=== PATIENT | male | born 1975 | race Caucasian/White ===

== ENCOUNTER → 2019-06-13 10:49 | Outpatient (BNVA) | payer OTHER, SELFPAY | PROVIDERS: Family Provider Nurse Practitioner Family; PCP Nurse Practitioner Family; Visit Provider Nurse Practitioner Family | DX: E11.9 Type 2 diabetes mellitus without complications (principal); I10 Essential (primary) hypertension | CPT/HCPCS: 80048; 83036 ==

== ENCOUNTER → 2019-06-18 16:06 | Outpatient (BNVA) | payer OTHER, SELFPAY | PROVIDERS: Family Provider Nurse Practitioner Family; PCP Nurse Practitioner Family; Visit Provider Nurse Practitioner | DX: A08.4 Viral intestinal infection, unspecified (principal) | CPT/HCPCS: 87804 ==

== ENCOUNTER → 2020-01-02 10:51 | Outpatient (BNVA) | payer OTHER, SELFPAY | PROVIDERS: Family Provider Nurse Practitioner Family; PCP Nurse Practitioner Family; Visit Provider Nurse Practitioner Family | DX: E11.9 Type 2 diabetes mellitus without complications (principal) | CPT/HCPCS: 82043 ==

== ENCOUNTER → 2020-02-06 08:17 | Outpatient (BNVA) | payer OTHER, SELFPAY | PROVIDERS: Family Provider Nurse Practitioner Family; PCP Nurse Practitioner Family; Visit Provider Nurse Practitioner Family | DX: E11.9 Type 2 diabetes mellitus without complications (principal) | CPT/HCPCS: 82043 ==

== ENCOUNTER → 2020-04-02 08:37 | Outpatient (BNVA) | payer OTHER, SELFPAY | PROVIDERS: Family Provider Nurse Practitioner Family; PCP Nurse Practitioner Family; Visit Provider Nurse Practitioner Family | DX: I10 Essential (primary) hypertension (principal); E11.9 Type 2 diabetes mellitus without complications | CPT/HCPCS: 80048; 83036 ==

== ENCOUNTER → 2020-07-02 08:43 | Outpatient (BNVA) | payer OTHER, SELFPAY | PROVIDERS: PCP Nurse Practitioner Family; Visit Provider Nurse Practitioner Family | DX: E11.9 Type 2 diabetes mellitus without complications (principal); I10 Essential (primary) hypertension | CPT/HCPCS: 80053; 83036 ==

== ENCOUNTER → 2020-09-24 08:18 | Outpatient (BNVA) | payer OTHER, SELFPAY | PROVIDERS: PCP Nurse Practitioner Family; Visit Provider Nurse Practitioner Family | DX: E11.9 Type 2 diabetes mellitus without complications (principal); E78.5 Hyperlipidemia, unspecified | CPT/HCPCS: 80061; 83036 ==

== ENCOUNTER → 2020-11-24 15:55 | Outpatient (BNVA) | payer OTHER, SELFPAY | PROVIDERS: PCP Nurse Practitioner Family; Visit Provider Nurse Practitioner Family | DX: I10 Essential (primary) hypertension (principal); R07.89 Other chest pain | CPT/HCPCS: 80053; 81003; 82150; 83690; 83735; 84443; 85025; 85651; 86140 ==

== ENCOUNTER 2020-11-26 15:42 | Emergency (ER) | payer OTHER, SELFPAY ==
[2020-11-26 15:53] VITALS: BP 109/65; PULSE 87; RESP 18; TEMP 36.8; O2SAT 95; BMI 21.9
[2020-11-26 19:50] LABS: Basophils % 0.5 %; Eosinophils # 0.1 10^3/uL (0.0-0.8); Eosinophils % 1.3 %; Hematocrit 51.3 % (42.0-52.0); Hemoglobin 16.5 g/dL (11.7-16.6); Lymphocytes # 2.6 10^3/uL (0.8-4.8); Mean Corpuscular HGB Conc 32.2 g/dL (30.0-36.0); Mean Corpuscular Hemoglobin 29.9 pg (28.0-34.0); Mean Corpuscular Volume 92.9 fL (80-94); Mean Platelet Volume 9.1 fL (7.4-10.4); Monocytes # 0.6 10^3/uL (0.2-0.9); Monocytes % 7.1 %; Neutrophils % 58.8 %; Nucleated Red Blood Cells % 0 %; Platelet Count 324 10^3/cmm (130-400); Red Blood Count 5.52 10^6/uL (4.1-5.3); Red Cell Distribution Width 12.7 % (12.1-15.1)
[2020-11-26 20:12] LABS: Alanine Aminotransferase 19 U/L (0-41); Albumin Level 4.4 g/dL (3.5-5.2); Alkaline Phosphatase 87 IU/L (40-130); Anion Gap 12.1 (5-19); Aspartate Amino Transferase 16 U/L (0-40); Blood Urea Nitrogen 16 mg/dL (6-20); Carbon Dioxide 28 mmol/L (22-29); Chloride 102 mmol/L (98-107); Globulin 2.5 g/dL (1.3-4.6); Glomerular Filtration Rate 120.9 mL/min (90-130); Glucose 117 mg/dL (65-115); Osmolality Calculated 288 mOsm/kg (285-295); Potassium 4.1 mmol/L (3.5-5.1); Sodium 138 mmol/L (136-145); Total Bilirubin 0.2 mg/dL (0.15-1.2); Total Protein 6.9 g/dL (6.6-8.7)
--- NOTE | 2020-11-26 20:15 | CTR_ITS ---
PROCEDURE INFORMATION: Exam: CT Abdomen And Pelvis With Contrast Exam date and time: 11/26/2020 8:15 PM Age: 45 years old Clinical indication: Abdominal pain; Flank; Left; Additional info: Abd pain TECHNIQUE: Imaging protocol: Computed tomography of the abdomen and pelvis with contrast. Radiation optimization: All CT scans at this facility use at least one of these dose optimization techniques: automated exposure control; mA and/or kV adjustment per patient size (includes targeted exams where dose is matched to clinical indication); or iterative reconstruction. Contrast material: OMNI 300; Contrast volume: 95 ml; Contrast route: INTRAVENOUS (IV); COMPARISON: US soft tissue/extremity [id number] 06/21/2020 3:44 PM RADIATION DOSE METRICS: Total DLP (mGy-cm): 1070.17 FINDINGS: Liver: There is focal hypoattenuation adjacent to the falciform fissure compatible with focal fatty infiltration. Gallbladder and bile ducts: Normal. No calcified stones. No ductal dilation. Pancreas: Normal. No ductal dilation. Spleen: An isodense 1.5 cm nodularity seen anterior to the spleen compatible with a benign splenule. Adrenal glands: Normal. No mass. Kidneys and ureters: There is a 3.3 mm nonobstructing calculus seen in the upper pole of the left kidney. Stomach and bowel: Moderate stool is present within the colon. There are several loops of nondilated fluid-filled small bowel seen in the lower abdomen and pelvis, findings could represent mild ileus. Appendix: The appendix is visualized and is normal in configuration. Intraperitoneal space: Unremarkable. No free air. No significant fluid collection. Vasculature: Unremarkable. No abdominal aortic aneurysm. Lymph nodes: Unremarkable. No enlarged lymph nodes. Urinary bladder: Unremarkable as visualized. Reproductive: Unremarkable as visualized. Bones/joints: Unremarkable. No acute fracture. Soft tissues: Unremarkable. CT/CT abdomen pelvis w con* [id number] IMPRESSION: 1. Nonobstructing 3.3 mm left renal calculus. 2. Moderate stool present within the colon. 3. Several nondilated fluid-filled small bowel loops are seen in the lower abdomen and pelvis, findings that could represent mild ileus. Radiation Dose CTDIVOL = (mGy): DLP = 1070.17 (mGy-cm)
--- NOTE | 2020-11-26 20:25 | ED_ITS ---
HPI - Abdominal Pain General: Chief Complaint: Abdominal Pain Stated Complaint: L ABD PAIN, L FLANK PAIN(HAS U/S SCHED,CAN'T WAIT) Time Seen by Provider: 11/26/20 20:05 Source: patient Mode of arrival: ambulatory Limitations: no limitations History of Present Illness: HPI narrative: 45-year-old male states has been having left-sided abdominal and flank pain since Sunday. He states pain is sharp in nature and rates it a 7 out of 10. Denies any dysuria. Denies any worsening or improving factors. He denies any vomiting or diarrhea. He states that his pain is been pretty constant. Associated Symptoms: Denies chills, dysuria and fever(s) Review of Systems Const: Denies: fever(s), chills, body aches or change in appetite Eyes: Denies: blurry vision or eye discomfort ENMT: Denies: throat pain or dental pain Card: Denies: chest pain Resp: Denies: dyspnea GI: Reports: abdominal pain : Denies: dysuria Musc: Denies: neck pain or back pain Skin/Breast: Denies: rash Neuro: Denies: headache(s) Psych: Denies: depression Aric/Lymph: Denies: easy bruising All/Imm: Denies: urticaria PFSH ED PFSH: Medical History (Updated 11/26/20 @ 22:13 by Rupa Santana MD) Abdominal pain Colitis Hypertension Left-sided chest wall pain Mild acid reflux Type 2 diabetes mellitus without complication Family History Mother Hypertension Diabetes Father Diabetes Social History Smoking and tobacco status: never smoked Physical Exam Const: COMMON NORMALS: no acute distress, patient oriented x3 and healthy appearing HENMT: COMMON NORMALS: normocephalic and atraumatic HEAD & SCALP: normocephalic and atraumatic Eye: COMMON NORMALS: Equal, round and reactive pupils present and EOMs intact bilaterally PUPIL: Yes Equal, round and reactive pupils present Neck/C-Spine: COMMON NORMALS: full ROM and supple Chest: COMMONS NORMALS: normal inspection of the chest and normal palpation of entire chest wall Resp: COMMON NORMALS: normal respiratory effort, No retractions, No use of accessory muscles and clear to auscultation bilaterally AUSCULTATION: clear to auscultation bilaterally Cardio: COMMON NORMALS: regular rate, regular rhythm and No murmurs present (Cardio) RATE: regular rate RHYTHM: regular rhythm GI: COMMON NORMALS: Normal to inspection, nondistended, normoactive bowel sounds present, Soft to palpation, non-tender and no masses PALPATION: Yes Soft to palpation and Yes Tenderness to palpation present (GI) Details: LLQ Extremity: COMMON NORMALS: normal to inspection and full ROM Neuro: COMMON NORMALS: patient oriented x3, moves all extremities and no focal motor deficits Psych: COMMON NORMALS: mental status grossly normal, Normal thought process present and cooperative THOUGHT PROCESS: Normal thought process present Skin: COMMON NORMALS: no rashes or lesions noted and no wounds GENERAL SKIN EXAM: no rashes or lesions noted Course Vital Signs: Vital signs: Vital Signs Temperature 98.2 F 11/26/20 15:53 Pulse Rate 87 11/26/20 15:53 Respiratory Rate 18 11/26/20 15:53 Blood Pressure 109/65 11/26/20 15:53 Pulse Oximetry 95 11/26/20 15:53 MDM - Abdominal Pain MDM Narrative: Medical decision making narrative: Patient presents here with flank pain and does have a kidney stone. Is likely causing his pain. Should be able to pass the stone his pain is resolved here. We will send him home with a strainer along with pain meds. He is to follow-up with urology and return if worsening. Lab Data: Labs: Lab Results 11/26/20 11/26/20 11/26/20 Range/Units 19:46 19:46 19:46 WBC 8.0 (4.0-10.0) 10^3/ uL RBC 5.52 H (4.1-5.3) 10^6/u L Hgb 16.5 (11.7-16.6) g/dL Hct 51.3 (42.0-52.0) % MCV 92.9 (80-94) fL MCH 29.9 (28.0-34.0) pg MCHC 32.2 (30.0-36.0) g/dL RDW 12.7 (12.1-15.1) % Plt Count 324 (130-400) 10^3/c mm MPV 9.1 (7.4-10.4) fL Neut % (Auto) 58.8 % Lymph % (Auto) 32.0 % [place] % (Auto) 7.1 % Eos % (Auto) 1.3 % Baso % (Auto) 0.5 % Neut # (Auto) 4.70 (1.8-7.7) 10^3/u L Lymph # (Auto) 2.6 (0.8-4.8) 10^3/u L [place] # (Auto) 0.6 (0.2-0.9) 10^3/u L Eos # (Auto) 0.1 (0.0-0.8) 10^3/u L Baso # (Auto) 0.0 (0.0-0.1) 10^3/u L Nucleated RBC % (a uto) 0 % Nucleated RBCs # 0.0 /100WBC Sodium 138 (136-145) mmol/L Potassium 4.1 (3.5-5.1) mmol/L Chloride 102 (98-107) mmol/L Carbon Dioxide 28 (22-29) mmol/L Anion Gap 12.1 (5-19) BUN 16 (6-20) mg/dL Creatinine 0.7 (0.7-1.2) mg/dL GFR Calculation 120.9 (90-130) mL/min Glucose 117 H (65-115) mg/dL Calculated Osmolal ity 288 (285-295) mOsm/k g Calcium 9.0 (8.5-10.5) mg/dL Total Bilirubin 0.2 (0.15-1.2) mg/dL AST 16 (0-40) U/L ALT 19 (0-41) U/L Alkaline Phosphata se 87 (40-130) IU/L Total Protein 6.9 (6.6-8.7) g/dL Albumin 4.4 (3.5-5.2) g/dL Globulin 2.5 (1.3-4.6) g/dL Lipase 35 (13-60) U/L Imaging Data ^: CT Abd/Pel: Attestation: I personally reviewed and interpreted this imaging study as follows: Radiologist's impression: [address] [address] [address] Scan Report Signed Patient: Keegan Robertson Unit #: [id number] : 1975 Age/Sex: 45 / M ADM Date: 11/26/20 Loc: ER Room/Bed: Attending Dr: Ordering Provider/Ordering MD: Rupa Santana MD Date of Service: 11/26/20 Procedure(s): CT abdomen pelvis w con* [id number] Accession Number(s): [id number] Report Number: [id number] PROCEDURE INFORMATION: Exam: CT Abdomen And Pelvis With Contrast Exam date and time: 11/26/2020 8:15 PM Age: 45 years old Clinical indication: Abdominal pain; Flank; Left; Additional info: Abd pain TECHNIQUE: Imaging protocol: Computed tomography of the abdomen and pelvis with contrast. Radiation optimization: All CT scans at this facility use at least one of these dose optimization techniques: automated exposure control; mA and/or kV adjustment per patient size (includes targeted exams where dose is matched to clinical indication); or iterative reconstruction. Contrast material: OMNI 300; Contrast volume: 95 ml; Contrast route: INTRAVENOUS (IV); COMPARISON: US soft tissue/extremity [id number] 06/21/2020 3:44 PM RADIATION DOSE METRICS: Total DLP (mGy-cm): 1070.17 FINDINGS: Liver: There is focal hypoattenuation adjacent to the falciform fissure compatible with focal fatty infiltration. Gallbladder and bile ducts: Normal. No calcified stones. No ductal dilation. Pancreas: Normal. No ductal dilation. Spleen: An isodense 1.5 cm nodularity seen anterior to the spleen compatible with a benign splenule. Adrenal glands: Normal. No mass. Kidneys and ureters: There is a 3.3 mm nonobstructing calculus seen in the upper pole of the left kidney. Stomach and bowel: Moderate stool is present within the colon. There are several loops of nondilated fluid-filled small bowel seen in the lower abdomen and pelvis, findings could represent mild ileus. Appendix: The appendix is visualized and is normal in configuration. Intraperitoneal space: Unremarkable. No free air. No significant fluid collection. Vasculature: Unremarkable. No abdominal aortic aneurysm. Lymph nodes: Unremarkable. No enlarged lymph nodes. Urinary bladder: Unremarkable as visualized. Reproductive: Unremarkable as visualized. Bones/joints: Unremarkable. No acute fracture. Soft tissues: Unremarkable. CT/CT abdomen pelvis w con* [id number] IMPRESSION: 1. Nonobstructing 3.3 mm left renal calculus. 2. Moderate stool present within the colon. 3. Several nondilated fluid-filled small bowel loops are seen in the lower abdomen and pelvis, findings that could represent mild ileus. Radiation Dose CTDIVOL = (mGy): DLP = 1070.17 (mGy-cm) Dictated By: Joseph Golden MD Signed By: Joseph Golden MD Signed Date/Time: 11/26/202202 DD/ 00 Discharge Plan Discharge Patient Disposition: Home Clinical Impression: Calculus of kidney Condition: Stable Prescriptions: New ondansetron 4 mg tablet,disintegrating 4 mg PO Q6H PRN (Reason: nausea and vomiting) Qty: 14 RF: 0 tramadol 50 mg tablet 50 mg PO Q8H PRN (Reason: pain) Qty: 20 RF: 0 No Action ondansetron HCl [Zofran] 4 mg tablet 4 mg PO Q8H PRN (Reason: nausea and vomiting) Qty: 15 RF: 0 meloxicam 15 mg tablet 15 mg PO DAILY RF: 0 baclofen 10 mg tablet 10 mg PO DAILY PRN (Reason: MUSCLE SPASMS) RF: 0 Protonix 40 mg tablet,delayed release (DR/EC) 40 mg PO DAILY RF: 0 lisinopril 10 mg tablet 10 mg PO DAILY RF: 0 Januvia 100 mg tablet 100 mg PO DAILY RF: 0 Farxiga 10 mg tablet 10 mg PO DAILY RF: 0 Discharge Orders: Discharge ED (Routine); Ordered 11/26/20 Ordered By: Rupa Santana Referrals: Emely Wei FNP [Primary Care Provider] - Sascha Padilla MD [Physician] - 1-3 days Discharge Diet: Advance as tolerated Discharge Activity: Resume usual activity Patient Instructions: Kidney Stones (ED), Opioid Safety Coding Level of Care Code ED Network Management Specialist for Chg Fwd Exam Comprehensive
[2020-11-26] MEDS: sodium chloride 0.9% 1,000 ML 999 ML IV (20:32)
[2020-11-26 20:33] LABS: Lipase 35 U/L (13-60)
[2020-11-26] MEDS: iohexol 300 mg/mL 100 mL Btl IV (21:23)
[2020-11-26] MEDS: ketorolac 30 mg/mL INJ 15 MG IVP (22:38)
[2020-11-26 22:46] VITALS: BP 110/83; PULSE 82; RESP 16; TEMP 36.6; O2SAT 98
--- NOTE | 2020-11-29 09:35 | DCPLANNER ---
merchandise manager had message to schedule a follow up appointment for patient with Dr. Padilla. merchandise manager called the office of Dr. Padilla, spoke with Mina, gave clinic patients information. merchandise manager was told that patients information would be printed and reviewed. Clinic will call patient with appointment information.
--- NOTE | 2020-11-30 07:49 | DCPLANNER ---
Patient has a follow up appointment scheduled for Sunday, December 01, [address] at 8:[address] Padilla. Clinic will call patient with appointment information.
--- NOTE | 2020-12-09 12:37 | DCPLANNER ---
Patient had a follow up appointment scheduled for 12.01.[address] Padilla - patient did attend appointment.
== END 2020-11-26 23:10 | disposition home or self-care (01) ==
PROVIDERS: Nurse Practitioner Family; Absent Provider Nurse Practitioner Family; Emergency Provider Emergency Medicine; PCP Nurse Practitioner Family
DX: N20.0 Calculus of kidney (principal); I10 Essential (primary) hypertension; E11.9 Type 2 diabetes mellitus without complications
CPT/HCPCS: 74177; 80053; 83690; 85025; 96361; 96374; 99283; J1885; J7030; Q9967

== ENCOUNTER 2020-12-01 07:46 | Outpatient (CLI) | payer OTHER, SELFPAY ==
--- NOTE | 2020-12-01 08:02 | XR_ITS ---
WS: [id number] KUB, AP view, 12/01/2020 Clinical Data: STONES Comparison: CT abdomen and pelvis, 11/26/2020. Findings: No abnormal intraabdominal masses or calcifications are seen. There is no dilatated small bowel or ev idence of obstruction. Fecal material and colon gas obscure detail over both kidneys and in the pelvis. XR/XR KUB [id number] Impression: Negative KUB.
== END 2020-12-01 07:47 | disposition home or self-care (01) ==
LOC: RAD 07:56
PROVIDERS: PCP Nurse Practitioner Family; Visit Provider Urology
DX: N20.0 Calculus of kidney (principal)
CPT/HCPCS: 74018

== ENCOUNTER 2020-12-29 10:49 | Outpatient (CLI) | payer OTHER, SELFPAY ==
--- NOTE | 2020-12-29 10:45 | XR_ITS ---
WS: [id number] ABDOMEN 1 VIEW(S) HISTORY: K59.01 - Slow transit constipation COMPARISON: 12/01/2020 Mild increased amount of air and fecal material throughout the colon. No obstructive pattern. Mild im provement in inspissated material since the prior study. No suspicious calcifications or masses. No bone abnormality. XR/XR KUB [id number] IMPRESSION: Mild diffuse constipation, slight improvement since 12/01/2020.
== END 2020-12-29 10:50 | disposition home or self-care (01) ==
PROVIDERS: PCP Nurse Practitioner Family; Visit Provider Nurse Practitioner Family
DX: K59.01 Slow transit constipation (principal)
CPT/HCPCS: 74018

== ENCOUNTER → 2020-12-31 09:00 | Outpatient (BNVA) | payer OTHER, SELFPAY | PROVIDERS: PCP Nurse Practitioner Family; Visit Provider Nurse Practitioner Family | DX: E11.9 Type 2 diabetes mellitus without complications (principal) | CPT/HCPCS: 83036 ==

== ENCOUNTER → 2021-08-04 09:14 | Outpatient (BNVA) | payer OTHER, SELFPAY | PROVIDERS: PCP Nurse Practitioner Family; Visit Provider Nurse Practitioner Family | DX: E11.9 Type 2 diabetes mellitus without complications (principal); I10 Essential (primary) hypertension | CPT/HCPCS: 80053; 83036 ==

== ENCOUNTER → 2021-09-16 11:35 | Outpatient (BNVA) | payer OTHER, SELFPAY | PROVIDERS: PCP Nurse Practitioner Family; Visit Provider Nurse Practitioner Family | DX: R79.9 Abnormal finding of blood chemistry, unspecified (principal) | CPT/HCPCS: 80048 ==

== ENCOUNTER → 2021-10-07 09:14 | Outpatient (BNVA) | payer OTHER, SELFPAY | PROVIDERS: PCP Nurse Practitioner Family; Visit Provider Nurse Practitioner Family | DX: E11.9 Type 2 diabetes mellitus without complications (principal); E78.5 Hyperlipidemia, unspecified | CPT/HCPCS: 80061 ==

== ENCOUNTER 2021-11-08 14:15 | Emergency (ER) | payer OTHER, SELFPAY ==
[2021-11-08 14:31] VITALS: BP 118/64; PULSE 102; RESP 18; TEMP 37.4; O2SAT 97; BMI 22.8
--- NOTE | 2021-11-08 14:41 | ED_ITS ---
HPI - Skin/Abscess/Foreign Bdy General: Chief complaint: Skin/Abscess/Foreign Body Stated complaint: right arm pain Time Seen by Provider: 11/08/21 14:41 Source: patient Mode of arrival: ambulatory Limitations: no limitations History of Present Illness: Patient is a 46-year-old male who presents to ED [facility] at the request of his primary care provider for evaluation of worsening abscesses to his left arm. Patient states he initially began noticing pimple- like lesions to the arm 10 days ago. He was seen at his PCP facility on 11/03 and was told they could be secondary to spider bites. He was placed on Bactrim for secondary infection coverage. Patient states he has been taking his medication since Sunday. He states he did skip his medication this morning as he began to break out in a rash. He states abscesses of continue to worsen, enlarge, and drain. No known history of staph or MRSA. He has had a previous boil to his leg that required incision and drainage. Reports rash to R UE and trunk. Was told by PCP this could be secondary to Bactrim use. MD complaint: abscess/boil Location: LUE Associated symptoms: Deny chills, fever(s), nausea or vomiting Treatments prior to arrival: antibiotic Review of Systems Const: Denies: fever(s), chills, body aches, fatigue or malaise Card: Denies: chest pain Resp: Denies: dyspnea GI: Denies: abdominal pain, nausea, vomiting or diarrhea Musc: Reports: extremity pain (L arm); Denies: neck pain, back pain, joint pain or joint swelling Skin/Breast: Reports: other (multiple abscesses to L UE) Neuro: Denies: headache(s), numbness in extremities, weakness in extremities or sensory changes [facility] ED PFSH: Medical History Abdominal pain Colitis Hypertension Left-sided chest wall pain Mild acid reflux Type 2 diabetes mellitus without complication Family History Mother Hypertension Diabetes Father Diabetes Social History Smoking and tobacco status: current every day smoker Alcohol intake: never Marital status: Current occupational status: employed History of recent travel: No Physical Exam Const: COMMON NORMALS: no acute distress, average body habitus, patient oriented x3, no limitations, alert and well nourished GENERAL APPEARANCE: cooperative ORIENTATION/CONSCIOUSNESS: Yes awake, Yes oriented to person, Yes oriented to place and Yes oriented to time Neck/C-Spine: COMMON NORMALS: no lymphadenopathy Lymph: LYMPHATIC: no lymphadenopathy noted Resp: COMMON NORMALS: normal respiratory effort and clear to auscultation bilaterally AUSCULTATION: clear to auscultation bilaterally Cardio: COMMON NORMALS: regular rate and regular rhythm RATE: regular rate RHYTHM: regular rhythm Extremity: GENERAL: Yes normal exam except as noted LEFT UPPER EXTREMITY: Yes upper arm and Yes lower arm OTHER: pt has three fairly large abscesses present to L UE; two of which are localized to dorsal aspect of L upper arm and actively draining-these two abscesses are connected/communicating-overall there is about 4 inches of diffuse induration/cellulitis with the abscess being centralized; other abscess is just distal to elbow joint (pt maintains full painless ROM of joint) and also is draining purulent material-this one measures about 4x4cm; drainage is purulent Neuro: COMMON NORMALS: patient oriented x3, moves all extremities, no focal motor deficits and no sensory deficits noted SENSORIUM/ORIENTATION: Yes alert, Yes oriented to person, Yes oriented to place and Yes oriented to time Skin: RASHES: rashes noted OTHER: erythematous macular rash noted to R UE and trunk Procedures Abscess I/D Site: upper extremity Side (if applicable): left Local Anesthetic: lidocaine 1%, bupivacaine 0.25% and with epi Amount of anesthesia used (mL): 10 Technique: incised with #11 blade Amount of fluid expressed (mL): 15 Irrigation: Yes Packing used?: plain Course Vital Signs: Vital signs: Vital Signs Temperature 99.3 F 11/08/21 14:31 Pulse Rate 102 H 11/08/21 14:31 Respiratory Rate 18 11/08/21 16:24 Blood Pressure 118/64 11/08/21 14:31 Pulse Oximetry 97 11/08/21 14:31 MDM - Skin/Abscess/Foreign Bdy Medicial Decision Making All 3 abscesses were successfully drained, probed and all purulent material expressed. Wounds were packed. 2 abscesses to upper arm were adjoining so packing placed through and tied. Patient is not tachycardic (initially 102 upon arrival but this resolved). He is not febrile. White count is 14.3 with a normal lactate. Patient will discontinue Bactrim for concern of allergic/skin reaction. No concerns for SJS/TEN. He will be started on Clindamycin 450mg TID. Patient needs to return to the emergency department immediately if abscess do not seem to improve the next 24 to 48 hours and certainly if they are worsening. If abscesses begin to improve at home he can follow-up with primary care in 3 to 5 days. Lab Data : 11/08/21 15:25 11/08/21 15:25 Laboratory Results WBC 14.3 10^3/uL (4.0-10.0) H 11/08/21 15:25 RBC 5.16 10^6/uL (4.1-5.3) 11/08/21 15:25 Hgb 15.3 g/dL (11.7-16.6) 11/08/21 15:25 Hct 46.0 % (42.0-52.0) 11/08/21 15:25 MCV 89.1 fl (80-94) 11/08/21 15:25 MCH 29.7 pg (28.0-34.0) 11/08/21 15:25 MCHC 33.3 g/dL (30.0-36.0) 11/08/21 15:25 RDW 12.3 % (12.1-15.1) 11/08/21 15:25 Plt Count 441 10^3/cmm (130-400) H 11/08/21 15:25 MPV 8.5 fL (7.4-10.4) 11/08/21 15:25 Neut % (Auto) 80.8 % 11/08/21 15:25 Lymph % (Auto) 11.7 % 11/08/21 15:25 [place] % (Auto) 6.4 % 11/08/21 15:25 Eos % (Auto) 0.4 % 11/08/21 15:25 Baso % (Auto) 0.3 % 11/08/21 15:25 Neut # (Auto) 11.54 10^3/uL (1.8-7.7) H 11/08/21 15:25 Lymph # (Auto) 1.7 10^3/uL (0.8-4.8) 11/08/21 15:25 [place] # (Auto) 0.9 10^3/uL (0.2-0.9) 11/08/21 15:25 Eos # (Auto) 0.1 10^3/uL (0.0-0.8) 11/08/21 15:25 Baso # (Auto) 0.0 10^3/uL (0.0-0.1) 11/08/21 15:25 Nucleated RBC % (auto) 0 % 11/08/21 15:25 Nucleated RBCs # 0.0 /100WBC 11/08/21 15:25 Sodium 132 mmol/L (136-145) L 11/08/21 15:25 Potassium 4.4 mmol/L (3.5-5.1) 11/08/21 15:25 Chloride 94 mmol/L (98-107) L 11/08/21 15:25 Carbon Dioxide 26 mmol/L (22-29) 11/08/21 15:25 Anion Gap 16.4 (5-19) 11/08/21 15:25 BUN 17 mg/dL (6-20) 11/08/21 15:25 Creatinine 0.7 mg/dL (0.7-1.2) 11/08/21 15:25 GFR Calculation 120.4 mL/min (90-130) 11/08/21 15:25 Glucose 138 mg/dL (65-115) H 11/08/21 15:25 Calculated Osmolality 278 mOsm/kg (285-295) L 11/08/21 15:25 Lactic Acid 1.0 mmol/L (0.5-2.2) 11/08/21 15:25 Calcium 9.2 mg/dL (8.5-10.5) 11/08/21 15:25 Total Bilirubin 0.3 mg/dL (0.15-1.2) 11/08/21 15:25 AST 25 U/L (0-40) 11/08/21 15:25 ALT 24 U/L (0-41) 11/08/21 15:25 Alkaline Phosphatase 117 IU/L (40-130) 11/08/21 15:25 C-Reactive Protein 75.3 mg/L (0.0-4.9) H 11/08/21 15:25 Total Protein 7.2 g/dL (6.6-8.7) 11/08/21 15:25 Albumin 4.1 g/dL (3.5-5.2) 11/08/21 15:25 Globulin 3.1 g/dL (1.3-4.6) 11/08/21 15:25 Discharge Plan Discharge Patient Disposition: Home Clinical Impression: Abscess of multiple sites of upper arm Condition: Stable Prescriptions: New clindamycin HCl 150 mg capsule 450 mg PO Q8H 7 Days Qty: 63 0RF tramadol 50 mg tablet 50 mg PO Q6H PRN (Reason: pain) Qty: 14 0RF No Action ondansetron HCl [Zofran] 4 mg tablet 4 mg PO Q8H PRN (Reason: nausea and vomiting) Qty: 15 0RF sulfamethoxazole-trimethoprim [Bactrim DS] 800-160 mg tablet 1 tab PO BID 10 Days Qty: 20 0RF Farxiga 10 mg tablet See Rx Instructions .ROUTE .COMPLEX Qty: 90 1RF Dose Instruction: TAKE 1 TABLET BY MOUTH EVERY DAY Rx Instructions: TAKE 1 TABLET BY MOUTH EVERY DAY lisinopril 10 mg tablet See Rx Instructions .ROUTE .COMPLEX Qty: 90 1RF Dose Instruction: TAKE 1 TABLET BY MOUTH EVERY DAY Rx Instructions: TAKE 1 TABLET BY MOUTH EVERY DAY Protonix 40 mg tablet,delayed release (DR/EC) 40 mg PO DAILY Qty: 90 1RF (DME) FreeStyle [place] 2 [place] Misc See Rx Instructions .ROUTE .COMPLEX Qty: 1 0RF Dose Instruction: USE DIRECTED Rx Instructions: USE DIRECTED (DME) FreeStyle [place] 2 Sensor Kit See Rx Instructions .ROUTE .COMPLEX Qty: 2 1RF Dose Instruction: USE TO CHECK BLOOD SUGAR Rx Instructions: USE TO CHECK BLOOD SUGAR meloxicam 15 mg tablet See Rx Instructions .ROUTE .COMPLEX Qty: 30 1RF Dose Instruction: TAKE 1 TABLET BY MOUTH DAILY Rx Instructions: TAKE 1 TABLET BY MOUTH DAILY baclofen 10 mg tablet See Rx Instructions .ROUTE .COMPLEX Qty: 60 0RF Dose Instruction: TAKE 1 TABLET BY MOUTH TWICE DAILY NEEDED FOR MUSCLE PAIN Rx Instructions: TAKE 1 TABLET BY MOUTH TWICE DAILY NEEDED FOR MUSCLE PAIN Discharge Orders: Discharge ED (Routine); Ordered 11/08/21 Ordered By: Gin Payton Referrals: [place],Emely, UNSCRAMBLER [Primary Care Provider] - Patient Instructions: Abscess (ED) Coding Level of Care Code ED Prenatal Teacher for Chg Fwd Exam Comprehensive
--- NOTE | 2021-11-08 14:55 | US_ITS ---
WS: [id number] ULTRASOUND SOFT TISSUES LEFT posterior upper arm. HISTORY: multiple abscess along L arm COMPARISON: None available. TECHNIQUE: 2-D and color Doppler imaging is submitted. There is a complex fluid collection in the soft tissues along the posterior LEFT upper extremity. Thi s collection measures 3.4 x 1.0 cm and there is mild increased peripheral vascularity. This is a comp dinora collection with low level echoes throughout. There is an additional collection which is less well organized in the posterior proximal forearm just below the elbow joint measuring 3.4 x 1.2 cm. There is some increased vascularity. This is nearly hypoechoic to the adjacent muscles. US/US soft tissue/extremity [id number] IMPRESSION: 1. There are 2 collections in the LEFT upper extremity. These are suspicious f or abscesses. 2. Collection in the posterior LEFT humerus is more organized. 3. Collection in the posterior proximal forearm is more phlegmonous at this ti me.
[2021-11-08 15:35] LABS: Basophils % 0.3 %; Eosinophils # 0.1 10^3/uL (0.0-0.8); Eosinophils % 0.4 %; Hemoglobin 15.3 g/dL (11.7-16.6); Lymphocytes # 1.7 10^3/uL (0.8-4.8); Lymphocytes % 11.7 %; Mean Corpuscular HGB Conc 33.3 g/dL (30.0-36.0); Mean Corpuscular Hemoglobin 29.7 pg (28.0-34.0); Mean Corpuscular Volume 89.1 fl (80-94); Mean Platelet Volume 8.5 fL (7.4-10.4); Monocytes # 0.9 10^3/uL (0.2-0.9); Monocytes % 6.4 %; Neutrophils # 11.54 10^3/uL (1.8-7.7); Neutrophils % 80.8 %; Nucleated Red Blood Cells % 0 %; Platelet Count 441 10^3/cmm (130-400); Red Blood Count 5.16 10^6/uL (4.1-5.3); Red Cell Distribution Width 12.3 % (12.1-15.1); White Blood Count 14.3 10^3/uL (4.0-10.0)
[2021-11-08 16:05] LABS: Alanine Aminotransferase 24 U/L (0-41); Albumin Level 4.1 g/dL (3.5-5.2); Alkaline Phosphatase 117 IU/L (40-130); Anion Gap 16.4 (5-19); Aspartate Amino Transferase 25 U/L (0-40); Blood Urea Nitrogen 17 mg/dL (6-20); C Reactive Protein 75.3 mg/L (0.0-4.9); Calcium 9.2 mg/dL (8.5-10.5); Carbon Dioxide 26 mmol/L (22-29); Chloride 94 mmol/L (98-107); Globulin 3.1 g/dL (1.3-4.6); Glomerular Filtration Rate 120.4 mL/min (90-130); Glucose 138 mg/dL (65-115); Osmolality Calculated 278 mOsm/kg (285-295); Potassium 4.4 mmol/L (3.5-5.1); Sodium 132 mmol/L (136-145); Total Bilirubin 0.3 mg/dL (0.15-1.2); Total Protein 7.2 g/dL (6.6-8.7)
[2021-11-08 16:24] VITALS: RESP 18
[2021-11-08] MEDS: morphine 4 mg/mL SDV 1 mL IVP (16:24)
[2021-11-08] MEDS: ondansetron 2 mg/ML SDV 2 mL 4 MG IVP (16:25)
[2021-11-08] MEDS: vancomycin 1,000 MG in sodium chloride 0.9% 250 ML 250 MG IV (16:30)
[2021-11-08] MEDS: diphenhydrAMINE 50 mg/mL SDV 1mL 25 MG IVP (16:44)
[2021-11-08 17:40] VITALS: BP 100/57; PULSE 80; RESP 16; O2SAT 97
== END 2021-11-08 17:58 | disposition home or self-care (01) ==
PROVIDERS: Emergency Provider Physician Assistant; PCP Nurse Practitioner Family
DX: L02.413 Cutaneous abscess of right upper limb (principal); I10 Essential (primary) hypertension; E11.9 Type 2 diabetes mellitus without complications; F17.200 Nicotine dependence, unspecified, uncomplicated
CPT/HCPCS: 10060; 76882; 80053; 83605; 85025; 86140; 87040; 87070; 87075; 87077; 87186; 87205; 96374; 96375; 99285; J1200; J2270; J2405; J3370; J7050

== ENCOUNTER 2021-11-09 16:27 | Emergency (ER) | payer OTHER, SELFPAY ==
[2021-11-09 16:54] VITALS: BP 81/53; PULSE 116; RESP 18; TEMP 37.4; O2SAT 95; BMI 22.8
[2021-11-09 17:12] VITALS: BP 87/56; PULSE 102; RESP 18; TEMP 37.4; O2SAT 91
--- NOTE | 2021-11-09 17:17 | ED_ITS ---
HPI - Allergic Reaction General: Chief complaint: Allergic Reaction Stated complaint: bilateral arm pain Time Seen by Provider: 11/09/21 17:01 Source: patient Mode of arrival: ambulatory History of Present Illness: HPI narrative: 46-year-old male was seen yesterday in the emergency room for abscesses on his arms. The abscesses were incised and drained he had already begun to have a rash the notes from the ER yesterday there is concerned that it was an allergic reaction the Bactrim was stopped and he was started on clindamycin. He returns today because he feels like the rash is worsening he is not had any difficulty with breathing. No stridor no cough no wheezing MD complaint: allergic reaction Onset (ago): day(s) Exposure: medication (Bactrim) Associated symptoms: Reports rash; Deny abdominal pain, difficulty breathing, dysphagia, dizziness, facial swelling, hoarseness, itching, lip swelling, nausea, tongue swelling or vomiting Severity: moderate Treatment prior to arrival: benadryl Previous Allergic Reaction History: prior ED visit(s) Review of Systems Const: Reports: body aches; Denies: fever(s), chills, change in appetite, fatigue or malaise ENMT: Denies: throat pain or hoarseness Card: Denies: chest pain, edema, dyspnea on exertion or orthopnea Resp: Denies: dyspnea, productive cough or non-productive cough GI: Denies: abdominal pain, nausea, vomiting or dysphagia : Denies: flank pain, difficulty urinating, dysuria, urinary frequency or urinary urgency Skin/Breast: Reports: rash and pruritus Neuro: Denies: dizziness All/Imm: Denies: tongue swelling or facial swelling [facility] ED PFSH: Medical History Abdominal pain Abscess of multiple sites of upper arm Allergic reaction Angioedema Colitis Hypertension Left-sided chest wall pain Leukocytosis Mild acid reflux Type 2 diabetes mellitus without complication Urticaria Family History Mother Hypertension Diabetes Father Diabetes Social History Smoking and tobacco status: current every day smoker Alcohol intake: never Marital status: Current occupational status: employed History of recent travel: No Physical Exam Const: GENERAL APPEARANCE: cooperative ORIENTATION/CONSCIOUSNESS: Yes aw [place], Yes oriented to person, Yes oriented to place and Yes oriented to time HENMT: COMMON NORMALS: normocephalic, atraumatic, hearing grossly normal bilaterally, external ears normal, EAC's normal, TM's normal bilaterally, Normal nasal mucous membranes and turbinates present, moist oral mucous membranes and oropharynx normal HEAD & SCALP: normocephalic and atraumatic NOSE: Normal nasal mucous membranes and turbinates present EXTERNAL EAR: Yes external ears normal EXTERNAL AUDITORY CANAL: EAC's normal TYMPANIC MEMBRANE: TM's normal bilaterally Eye: COMMON NORMALS: Equal, round and reactive pupils present, EOMs intact bilaterally, conjunctivae normal and no scleral icterus CONJUNCTIVA: Yes conjunctivae normal PUPIL: Yes Equal, round and reactive pupils present Neck/C-Spine: COMMON NORMALS: full ROM, no lymphadenopathy, supple and no JVD Lymph: LYMPHATIC: no lymphadenopathy noted and no lymphedema noted Resp: COMMON NORMALS: normal respiratory effort, No retractions, No use of accessory muscles and clear to auscultation bilaterally AUSCULTATION: clear to auscultation bilaterally Cardio: COMMON NORMALS: no JVD, regular rate, regular rhythm and No murmurs present (Cardio) RATE: regular rate RHYTHM: regular rhythm GI: COMMON NORMALS: Soft to palpation and No hepatosplenomegaly present AUSCULTATION: Yes normoactive bowel sounds PALPATION: Yes Soft to palpation, No Tenderness to palpation present (GI), No Guarding due to palpation present (GI) and Yes No hepatosplenomegaly present Extremity: COMMON NORMALS: capillary refill normal, no clubbing, cyanosis or edema, no calf tenderness and no pedal edema OTHER: Abscess in the posterior upper arm and on the ulnar ridge of the forearm. Was able to express some purulent material. Culture was done yesterday. Wound repacked. In the upper arm it tunnels underneath the section of skin about 3 to 4 inches in length Neuro: SENSORIUM/ORIENTATION: Yes oriented to person, Yes oriented to place and Yes oriented to time Skin: OTHER: Coalescing urticarial rash on the face neck arms and trunk Course Vital Signs: Vital signs: Vital Signs Temperature 99.3 F 11/09/21 17:12 Pulse Rate 99 11/09/21 19:00 Respiratory Rate 18 11/09/21 19:00 Blood Pressure 129/69 11/09/21 19:00 Pulse Oximetry 97 11/09/21 19:00 Oxygen Delivery Me thod 11/09/21 17:12 MDM - Allergic Reaction Medical Decision Making Patient would barely tolerate superficial packing to maintain the wounds open. Will refer to general surgery suspect will need this opened up to a greater extent and washed out. Continue current antibiotics. I think his rash is from the Bactrim and Bryn dated to starting on the clindamycin. Use hydroxyzine as needed for itching. Some discharge she has no stridor wheezing or significant facial swelling. Medical Records I reviewed the patient's medical records. Lab Data I reviewed the patient's lab results. : 11/09/21 17: Laboratory Results WBC 14.8 10^3/uL (4.0-10.0) H 11/09/21 17: RBC 5.20 10^6/uL (4.1-5.3) 11/09/21 17: Hgb 15.4 g/dL (11.7-16.6) 11/09/21 17: Hct 46.6 % (42.0-52.0) 11/09/21 17: MCV 89.6 fl (80-94) 11/09/21 17: MCH 29.6 pg (28.0-34.0) 11/09/21 17: MCHC 33.0 g/dL (30.0-36.0) 11/09/21 17: RDW 12.2 % (12.1-15.1) 11/09/21: Plt Count 378 10^3/cmm (130-400) 11/09/21 17:25 MPV 9.3 fL (7.4-10.4) 11/09/21 17:25 Neut % (Auto) 87.1 % 11/09/21 17: Lymph % (Auto) 9.2 % 11/09/21 17: [place] % (Auto) 3.0 % 11/09/21 17: Eos % (Auto) 0.1 % 11/09/21 17:25 Baso % (Auto) 0.1 % 11/09/21: Neut # (Auto) 12.85 10^3/uL (1.8-7.7) H 11/09/21 17:25 Lymph # (Auto) 1.4 10^3/uL (0.8-4.8) 11/09/21 17:25 [place] # (Auto) 0.5 10^3/uL (0.2-0.9) 11/09/21 17:25 Eos # (Auto) 0.0 10^3/uL (0.0-0.8) 11/09/21 17:25 Baso # (Auto) 0.0 10^3/uL (0.0-0.1) 11/09/21 17:25 Nucleated RBC % (auto) 0 % 11/09/21 17:25 Nucleated RBCs # 0.0 /100WBC 11/09/21 17:25 Discharge Plan Discharge Patient Disposition: Home Clinical Impression: Abscess of multiple sites of upper arm, Urticaria, Adverse reaction to drug Condition: Stable Prescriptions: New hydroxyzine HCl 25 mg tablet 25 mg PO TID Qty: 20 0RF ondansetron HCl 4 mg tablet 4 mg PO Q6H PRN (Reason: nausea and vomiting) Qty: 20 0RF No Action ondansetron HCl [Zofran] 4 mg tablet 4 mg PO Q8H PRN (Reason: nausea and vomiting) Qty: 15 0RF triamcinolone acetonide 0.1 % ointment 1 applic topical BID Qty: 80 0RF Rx Instructions: apply to affected area no more than 2 weeks per month. not for face (DME) FreeStyle Sylvester 2 Bliss Misc See Rx Instructions .ROUTE .COMPLEX Qty: 1 0RF Dose Instruction: USE DIRECTED Rx Instructions: USE DIRECTED (DME) FreeStyle Sylvester 2 Sensor Kit See Rx Instructions .ROUTE .COMPLEX Qty: 2 1RF Dose Instruction: USE TO CHECK BLOOD SUGAR Rx Instructions: USE TO CHECK BLOOD SUGAR baclofen 10 mg tablet See Rx Instructions .ROUTE .COMPLEX Qty: 60 0RF Dose Instruction: TAKE 1 TABLET BY MOUTH TWICE DAILY NEEDED FOR MUSCLE PAIN Rx Instructions: TAKE 1 TABLET BY MOUTH TWICE DAILY NEEDED FOR MUSCLE PAIN tramadol 50 mg tablet 50 mg PO Q6H PRN (Reason: pain) Qty: 14 0RF meloxicam 15 mg tablet 15 mg PO DAILY pantoprazole [Protonix] 40 mg tablet,delayed release (DR/EC) 40 mg PO DAILY PRN (Reason: Acid Reflux) Farxiga 10 mg tablet 10 mg PO DAILY EpiPen 2-Yordan 0.3 mg/0.3 mL auto-injector 0.3 mg IM Q10M PRN (Reason: hypersensitivity reaction) Qty: 2 2RF Rx Instructions: for 2 doses amlodipine 10 mg tablet 10 mg PO DAILY Qty: 30 0RF Benadryl Allergy 25 mg tablet 25 mg PO Q8H PRN (Reason: allergic reaction) Qty: 30 0RF Medrol (Yordan) 4 mg tablets,dose pack 4 mg PO DAILY Qty: 21 0RF levofloxacin 750 mg tablet 750 mg PO DAILY 7 Days Qty: 7 0RF mupirocin 2 % ointment 1 applic topical 5XD Qty: 22 1RF Humalog KwikPen Insulin 100 unit/mL insulin pen See Rx Instructions .ROUTE .COMPLEX Qty: 15 0RF Rx Instructions: sliding sclae Discharge Orders: Discharge ED (Routine); Ordered 11/09/21 Ordered By: Kwesi Kennedy Referrals: Geraldo Boyle DO [Physician] - Discharge Diet: Usual diet Discharge Activity: Resume usual activity Patient Instructions: Opioid Safety Activity Restrictions/Additional Instructions: Continue the clindamycin. Take the hydroxyzine 25 mg p.o. every [address] Boyle's office tomorrow he will see you and evaluate need for further incision and drainage of the abscesses. Coding Level of Care Code ED Chief Recordist for Doreen Fwd Exam Comprehensive
[2021-11-09 17:45] LABS: Basophils % 0.1 %; Eosinophils % 0.1 %; Hematocrit 46.6 % (42.0-52.0); Hemoglobin 15.4 g/dL (11.7-16.6); Lymphocytes # 1.4 10^3/uL (0.8-4.8); Lymphocytes % 9.2 %; Mean Corpuscular Hemoglobin 29.6 pg (28.0-34.0); Mean Corpuscular Volume 89.6 fl (80-94); Mean Platelet Volume 9.3 fL (7.4-10.4); Monocytes # 0.5 10^3/uL (0.2-0.9); Neutrophils # 12.85 10^3/uL (1.8-7.7); Neutrophils % 87.1 %; Nucleated Red Blood Cells % 0 %; Platelet Count 378 10^3/cmm (130-400); Red Cell Distribution Width 12.2 % (12.1-15.1); White Blood Count 14.8 10^3/uL (4.0-10.0)
[2021-11-09] MEDS: diphenhydrAMINE 50 mg/mL SDV 1mL IVP (17:55)
[2021-11-09 18:04] LABS: Slide Review Slide Review Perform
[2021-11-09] MEDS: TRAMadol 50 mg Tablet 100 MG PO (18:42)
[2021-11-09 19:00] VITALS: BP 129/69; PULSE 99; RESP 18; O2SAT 97
== END 2021-11-09 19:03 | disposition home or self-care (01) ==
PROVIDERS: Emergency Provider Family Medicine; PCP Nurse Practitioner Family
DX: L50.9 Urticaria, unspecified (principal); L02.419 Cutaneous abscess of limb, unspecified; T36.8X5A Adverse effect of other systemic antibiotics, initial encounter; Z79.4 Long term (current) use of insulin; I10 Essential (primary) hypertension; E11.9 Type 2 diabetes mellitus without complications; F17.210 Nicotine dependence, cigarettes, uncomplicated
CPT/HCPCS: 85025; 96374; 96375; 99284; J1200; J2930

== ENCOUNTER 2021-11-10 17:11 | Observation (INO) | payer OTHER, SELFPAY ==
[2021-11-10] VITALS (17 sets, daily range): BP systolic 99–126; BP diastolic 54–73; PULSE 87–114; RESP 12–28; TEMP 36.8–36.9; O2SAT 92–97; BMI 23.6; BMI 23.7
--- NOTE | 2021-11-10 18:33 | ED_ITS ---
HPI - Allergic Reaction General: Chief complaint: Allergic Reaction Stated complaint: Rx to meds, lips and face swollen Time Seen by Provider: 11/10/21 18:33 History of Present Illness: HPI narrative: Mr. Robertson is a 46-year-old gentleman with history of diabetes, hypertension, hyperlipidemia who presents to the emergency department due to concern over allergic reaction. He presented on 11/08 with a 10-day history of pimple-like lesions on his skin. He had been placed on Bactrim at that time for concern over superinfection of spider bites however he subsequently worsened including developed rash. He was switched to clindamycin and started taking Benadryl which overall improved rash however a few hours ago he noticed swelling of his lips and a scratchy/sore sensation in his throat. He denies any other new environmental exposures or similar reactions in the past. Overall course of symptoms has worsened since onset. Intensity is moderate. Denies associated worsening of rash, shortness of breath, wheezing, diarrhea or vomiting. No other specific changes in health, exacerbating, or alleviating factors identified. Onset (ago): hour(s) Exposure: medication Associated symptoms: Reports lip swelling and other Severity: moderate Treatment prior to arrival: benadryl Previous Allergic Reaction History: none Review of Systems General: Reports: 10 or more systems reviewed and unremarkable except in HPI and below PFSH ED PFSH: Medical History Abdominal pain Abscess of multiple sites of upper arm Allergic reaction Angioedema Colitis Hypertension Left-sided chest wall pain Leukocytosis Mild acid reflux Type 2 diabetes mellitus without complication Urticaria Family History Mother Hypertension Diabetes Father Diabetes Social History Smoking and tobacco status: current every day smoker Alcohol intake: never Marital status: Current occupational status: employed History of recent travel: No Physical Exam Const: COMMON NORMALS: alert GENERAL APPEARANCE: cooperative and well d eveloped HENMT: COMMON NORMALS: normocephalic and atraumatic HEAD & SCALP: normocephalic and atraumatic THROAT: posterior oropharynx normal OTHER: Moderate symmetric upper and lower lip edema. Minimal uvular edema without evidence of significant posterior pharyngeal edema or erythema. No evidence of tongue swelling. Speech normal. Patient tolerating oral secretions. No stridor. Eye: COMMON NORMALS: conjunctivae normal CONJUNCTIVA: Yes conjunctivae norm al SCLERA: sclerae normal Neck/C-Spine: COMMON NORMALS: supple GENERAL: Yes trachea midline Resp: COMMON NORMALS: normal respiratory effort and clear to auscultation bilaterally EFFORT & INSPECTION: Yes able to speak in complete sentences AUSCULTATION: clear to auscultation bilaterally Cardio: COMMON NORMALS: regular rate and regular rhythm RATE: regular rate RHYTHM: regular rhythm GI: COMMON NORMALS: Soft to palpation PALPATION: Yes Soft to palpation and No Tenderness to palpation present (GI) PERCUSSION: normal to percussion Extremity: GENERAL: Yes normal exam except as noted and No edema Neuro: COMMON NORMALS: moves all extremities SENSORIUM/ORIENTATION: Yes alert and No Orientation impaired Psych: COMMON NORMALS: mental status grossly normal and Normal thought process present THOUGHT PROCESS: Normal thought process present Skin: NARRATIVE SKIN EXAM: Scattered skin rash which is maculopapular in nature. Overall appears mild in distribution. Course ED course: - Patient was seen and evaluated by me at bedside - Patient placed on cardiac monitors, IV access obtained - Initial evaluation notable for exam as above - Labs personally interpreted by me - Allergic reaction treatment ordered - Labs notable for mild leukocytosis, no anemia. Metabolic panel with some evidence of dehydration. - Upon serial reexamination after treatment the patient was similar without progression - Based on patient history, evaluation, and testing as interpreted the most likely cause of the patient's condition is angioedema of unclear etiology. Given use of NATALIE inhibitor and failure to improve with medications including epinephrine lower suspicion for histamine related response. Patient does not have a history of reactions and no family history of angioedema. - The results of ED evaluation were discussed with the patient including plan for admission due to requirement for level of care not available if discharged to prevent significant worsening/deterioration. - Admitting service was contacted and Dr Grant with the hospitalist service agreed to admit the patient - Patient was admitted without further deterioration or significant events. Note: Click bubbles or prepopulated davila in note writing are used for assistance with data collection and billing and are inherently more limited than narrative and other text portions of this note. Please use narrative for additional clinical history and defer to narrative/free test for any case of contradictory information. If information appears in only free text or click bubble it should be considered present or absent as reported. Please contact note video game script writer for clarifications of clinical information or contradictory information. MDM is a brief summary, contradictory or erroneous seeming information should be clarified and full note should be reviewed. Vital Signs: Vital signs: Vital Signs Temperature 97.9 F 11/11/21 13:46 Pulse Rate 92 11/11/21 13:46 Respiratory Rate 18 11/11/21 13:46 Blood Pressure 103/57 11/11/21 13:46 Pulse Oximetry 97 11/11/21 13:46 Oxygen Delivery Me thod 11/11/21 08:00 MDM - Allergic Reaction Medical Decision Making 46-year-old gentleman presenting with swelling with unknown exposure. No acute indication for management on initial exam. Patient did not progress but also did not improve with treatment for allergic reaction. Admitted for airway observation. Medical Records I reviewed the patient's medical records. Lab Data I reviewed the patient's lab results. : 11/11/21 00:40 11/11/21 00:40 Radiology Impressions Soft Tissue Ultrasound 11/10/21 23:11 IMPRESSION: 1. No residual abscess identified in the posterior LEFT upper extremity. There is a large amount of shadowing which may be from air. Possible interval debridement since the prior study of 11/08/2021. 2. Mild hyperemia but no collection along the posterior LEFT forearm. Laboratory Results WBC 16.0 10^3/uL (4.0-10.0) H 11/10/21 18:59 RBC 4.68 10^6/uL (4.1-5.3) 11/10/21 18:59 Hgb 13.9 g/dL (11.7-16.6) 11/10/21 18:59 Hct 39.7 % (42.0-52.0) L 11/10/21 18:59 MCV 84.8 fl (80-94) D 11/10/21 18:59 MCH 29.7 pg (28.0-34.0) 11/10/21 18:59 MCHC 35.0 g/dL (30.0-36.0) D 11/10/21 18:59 RDW 12.4 % (12.1-15.1) 11/10/21 18:59 Plt Count 447 10^3/cmm (130-400) H 11/10/21 18:59 MPV 8.6 fL (7.4-10.4) 11/10/21 18:59 Neut % (Auto) 83.3 % 11/10/21 18:59 Lymph % (Auto) 12.4 % 11/10/21 18:59 [place] % (Auto) 3.4 % 11/10/21 18:59 Eos % (Auto) 0.2 % 11/10/21 18:59 Baso % (Auto) 0.2 % 11/10/21 18:59 Neut # (Auto) 13.29 10^3/uL (1.8-7.7) H 11/10/21 18:59 Lymph # (Auto) 2.0 10^3/uL (0.8-4.8) 11/10/21 18:59 [place] # (Auto) 0.5 10^3/uL (0.2-0.9) 11/10/21 18:59 Eos # (Auto) 0.0 10^3/uL (0.0-0.8) 11/10/21 18:59 Baso # (Auto) 0.0 10^3/uL (0.0-0.1) 11/10/21 18:59 Nucleated RBC % (auto) 0 % 11/10/21 18:59 Nucleated RBCs # 0.0 /100WBC 11/10/21 18:59 Sodium 130 mmol/L (136-145) L 11/10/21 19:31 Potassium 4.2 mmol/L (3.5-5.1) 11/10/21 19:31 Chloride 96 mmol/L (98-107) L 11/10/21 19:31 Carbon Dioxide 25 mmol/L (22-29) 11/10/21 19:31 Anion Gap 13.2 (5-19) 11/10/21 19:31 BUN 23 mg/dL (6-20) H 11/10/21 19:31 Creatinine 0.5 mg/dL (0.7-1.2) L 11/10/21 19:31 GFR Calculation 177.5 mL/min (90-130) H 11/10/21 19:31 Glucose 131 mg/dL (65-115) H 11/10/21 19:31 Calculated Osmolality 275 mOsm/kg (285-295) L 11/10/21 19:31 Calcium 8.1 mg/dL (8.5-10.5) L 11/10/21 19:31 Complement C4 16 mg/dL (10-40) 11/10/21 19:31 Discharge Plan Discharge Patient Disposition: Placed in Observation Admit Provider: Davon Grant Clinical Impression: Angioedema, Leukocytosis, Allergic reaction Discharge Diet: Diabetic Discharge Activity: Resume usual activity Coding Level of Care Code ED Rod Puller And Coiler for Chg Fwd Exam Comprehensive
[2021-11-10] MEDS: diphenhydrAMINE 50 mg/mL SDV 1mL IVP (18:57)
[2021-11-10] MEDS: famotidine 20 mg/2 mL INJ 40 MG IVP (18:57)
[2021-11-10] MEDS: sodium chloride 0.9% 1,000 ML 999 ML IV (18:57)
[2021-11-10 19:09] LABS: Basophils % 0.2 %; Eosinophils % 0.2 %; Hematocrit 39.7 % (42.0-52.0); Hemoglobin 13.9 g/dL (11.7-16.6); Lymphocytes % 12.4 %; Mean Corpuscular Hemoglobin 29.7 pg (28.0-34.0); Mean Corpuscular Volume 84.8 fl (80-94); Mean Platelet Volume 8.6 fL (7.4-10.4); Monocytes # 0.5 10^3/uL (0.2-0.9); Monocytes % 3.4 %; Neutrophils # 13.29 10^3/uL (1.8-7.7); Neutrophils % 83.3 %; Nucleated Red Blood Cells % 0 %; Platelet Count 447 10^3/cmm (130-400); Red Blood Count 4.68 10^6/uL (4.1-5.3); Red Cell Distribution Width 12.4 % (12.1-15.1)
[2021-11-10 20:15] LABS: Blood Urea Nitrogen 23 mg/dL (6-20); Calcium 8.1 mg/dL (8.5-10.5); Carbon Dioxide 25 mmol/L (22-29); Chloride 96 mmol/L (98-107); Glomerular Filtration Rate 177.5 mL/min (90-130); Glucose 131 mg/dL (65-115); Osmolality Calculated 275 mOsm/kg (285-295); Sodium 130 mmol/L (136-145)
[2021-11-10 20:16] LABS: Anion Gap 13.2 (5-19); Potassium 4.2 mmol/L (3.5-5.1)
[2021-11-10] MEDS: EPINEPHrine 1 mg/mL INJ 0.3 MG IM (21:25)
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
--- NOTE | 2021-11-10 23:11 | US_ITS ---
WS: [id number] ULTRASOUND SOFT TISSUES LEFT upper extremity. HISTORY: Evaluate abscess collections. COMPARISON: 11/08/2021. TECHNIQUE: 2-D and color Doppler imaging is submitted. Ultrasound directed over the LEFT upper extremity posteriorly. There is small amount of air with shad owing. The previously described large abscess has significantly improved and may have been debrided. The collection along the posterior forearm shows mild hyperemia and soft tissue thickening but there is no well-defined collection. US/US soft tissue/extremity 30314 IMPRESSION: 1. No residual abscess identified in the posterior LEFT upper extremity. There is a large amount of shadowing which may be from air. Possible interval debrid ement since the prior study of 11/08/2021. 2. Mild hyperemia but no collection along the posterior LEFT forearm.
[2021-11-10 23:23] LABS: Glucose Point of Care 229 mg/dL (70-110)
--- NOTE | 2021-11-10 23:53 | PC.PHAR ---
Vancomycin is dosed at 1000mg IVPB every 8 hours to produce a predicted trough level of 14.7 (population based pharmacokinetic analysis). A trough level has been ordered from the lab to be obtained before the fourth dose to confirm and adjust if needed.
[2021-11-11] VITALS (132 sets, daily range): BP systolic 75–124; BP diastolic 40–69; PULSE 62–101; RESP 0–30; TEMP 36.6–37.1; O2SAT 18–98
[2021-11-11] MEDS: vancomycin 1,000 MG in sodium chloride 0.9% 250 ML 250 MG IV (00:16)
[2021-11-11] MEDS: heparin 5,000 unit/mL INJ 1 mL 5000 UNIT SUBCUT ×2 (00:16→11:00)
[2021-11-11 01:10] LABS: Basophils % 0.2 %; Hematocrit 38.6 % (42.0-52.0); Hemoglobin 12.7 g/dL (11.7-16.6); Lymphocytes # 0.6 10^3/uL (0.8-4.8); Lymphocytes % 3.2 %; Mean Corpuscular HGB Conc 32.9 g/dL (30.0-36.0); Mean Corpuscular Hemoglobin 29.6 pg (28.0-34.0); Mean Platelet Volume 8.7 fL (7.4-10.4); Monocytes # 0.1 10^3/uL (0.2-0.9); Monocytes % 0.8 %; Neutrophils # 16.76 10^3/uL (1.8-7.7); Neutrophils % 95.3 %; Nucleated Red Blood Cells % 0 %; Platelet Count 472 10^3/cmm (130-400); Red Blood Count 4.29 10^6/uL (4.1-5.3); Red Cell Distribution Width 12.3 % (12.1-15.1); White Blood Count 17.6 10^3/uL (4.0-10.0)
[2021-11-11 01:29] LABS: Lactate (Lactic Acid level) 0.9 mmol/L (0.5-2.2)
[2021-11-11 01:31] LABS: Alanine Aminotransferase 16 U/L (0-41); Albumin Level 3.5 g/dL (3.5-5.2); Alkaline Phosphatase 83 IU/L (40-130); Anion Gap 13.4 (5-19); Aspartate Amino Transferase 16 U/L (0-40); Blood Urea Nitrogen 20 mg/dL (6-20); Calcium 8.5 mg/dL (8.5-10.5); Carbon Dioxide 25 mmol/L (22-29); Chloride 101 mmol/L (98-107); Glomerular Filtration Rate 143.8 mL/min (90-130); Glucose 219 mg/dL (65-115); Osmolality Calculated 289 mOsm/kg (285-295); Potassium 4.4 mmol/L (3.5-5.1); Sodium 135 mmol/L (136-145); Total Bilirubin 0.2 mg/dL (0.15-1.2); Total Protein 5.5 g/dL (6.6-8.7)
[2021-11-11 07:26] LABS: Glucose Point of Care 183 mg/dL (70-110)
[2021-11-11] MEDS: insulin lispro 100 unit/1 mL SUBCUT ×2 (08:28→13:32)
[2021-11-11] MEDS: famotidine 20 mg Tablet PO (08:28)
[2021-11-11] MEDS: doxycycline 100 mg Tablet PO (08:39)
[2021-11-11] MEDS: diphenhydrAMINE 25 mg Capsule PO (09:12)
--- NOTE | 2021-11-11 09:22 | PC.NURSE ---
Patient received Doxycycline about 40 minutes ago. Now has a rash to the extremities. Patient reports itching to rash and some tingling in his throat. Nurse gave the prn diphehydramine, and the scheduled solumedrol. Nurse alerted Dr Costa, no new orders received, continuing to monitor.
--- NOTE | 2021-11-11 09:29 | PM.DCS ---
Discharge Providers Date of Admission: 11/10/21 22:25 Date of Discharge: November 11, 2021 Attending Provider at Admission: Davon Grant Attending Provider at Discharge: Justa Costa MD Primary Care Provider: YOLETTE Murcia Diagnoses at Discharge Discharge Diagnosis (1) Allergic reaction: Status: Acute (2) Angioedema: Status: Acute (3) Urticaria: Status: Acute (4) Abscess of multiple sites of upper arm: Status: Acute (5) Leukocytosis: Status: Acute Reason for Visit Reason for Visit: Rx to meds, lips and face swollen Hospital Course Hospital Course Please see HPI which is very well written by the admitting physician. Patient was admitted in ICU he was given steroids, Benadryl, famotidine and epinephrine and fluid boluses which improved his blood pressure. Patient lip swelling, breathing status improved. Rash disappeared as well. I did speak with Dr. Barnett refractory specialist to see him in the clinic. His wound culture is showing MRSA sensitive to levofloxacin. Please note I gave him 1 dose of doxycycline which caused development of hives on his right hand. He was discharged on levofloxacin I have given him first dose in the ER he has not showed any signs of anaphylactic reaction or rash. I will also like him to follow-up with wound care clinic because of his deep tunnel wound on left arm. He has purulent cellulitis. I will also give him topical mupirocin. Close follow-up with Dr. Barnett in wound care clinic. He will be discharged on Benadryl, Medrol pack and 2 EpiPen's. has been updated I have discontinued his clindamycin, lisinopril and added amlodipine for his blood pressure. Physical Exam Narrative: Lip swelling, maculopapular rash disappeared Nonfocal neuro exam He is able to eat and talk properly No active wheezing or crackles No signs of stridor S1, S2 Left arm purulent cellulitis, tunnel ulcer Discharge Data Studies Completed and Pending Completed Studies During Hospitalization Category Date Time Status US soft tissue/extremity 42436 Urgent Ultrasound 11/10/21 23:11 Completed Pending at discharge Category Date Time Status Blood Culture Stat Lab 11/10/21 23:16 Results Complete Blood Count w/Auto AM LABS Lab 11/12/21 04:00 Ordered Complete Blood Count w/Auto AM LABS Lab 11/13/21 04:00 Ordered Comprehensive Metabolic Panel AM LABS Lab 11/12/21 04:00 Ordered Comprehensive Metabolic Panel AM LABS Lab 11/13/21 04:00 Ordered Vancomycin Trough Timed Lab 11/11/21 23:00 Ordered Radiology Impressions Soft Tissue Ultrasound 11/10/21 23:11 IMPRESSION: 1. No residual abscess identified in the posterior LEFT upper extremity. There is a large amount of shadowing which may be from air. Possible interval debridement since the prior study of 11/08/2021. 2. Mild hyperemia but no collection along the posterior LEFT forearm. Laboratory Results WBC 17.6 10^3/uL (4.0-10.0) H 11/11/21 00:40 RBC 4.29 10^6/uL (4.1-5.3) 11/11/21 00:40 Hgb 12.7 g/dL (11.7-16.6) 11/11/21 00:40 Hct 38.6 % (42.0-52.0) L 11/11/21 00:40 MCV 90.0 fl (80-94) D 11/11/21 00:40 MCH 29.6 pg (28.0-34.0) 11/11/21 00:40 MCHC 32.9 g/dL (30.0-36.0) D 11/11/21 00:40 RDW 12.3 % (12.1-15.1) 11/11/21 00:40 Plt Count 472 10^3/cmm (130-400) H 11/11/21 00:40 MPV 8.7 fL (7.4-10.4) 11/11/21 00:40 Neut % (Auto) 95.3 % 11/11/21 00:40 Lymph % (Auto) 3.2 % 11/11/21 00:40 [place] % (Auto) 0.8 % 11/11/21 00:40 Eos % (Auto) 0.0 % 11/11/21 00:40 Baso % (Auto) 0.2 % 11/11/21 00:40 Neut # (Auto) 16.76 10^3/uL (1.8-7.7) H 11/11/21 00:40 Lymph # (Auto) 0.6 10^3/uL (0.8-4.8) L 11/11/21 00:40 [place] # (Auto) 0.1 10^3/uL (0.2-0.9) L 11/11/21 00:40 Eos # (Auto) 0.0 10^3/uL (0.0-0.8) 11/11/21 00:40 Baso # (Auto) 0.0 10^3/uL (0.0-0.1) 11/11/21 00:40 Nucleated RBC % (auto) 0 % 11/11/21 00:40 Nucleated RBCs # 0.0 /100WBC 11/11/21 00:40 Sodium 135 mmol/L (136-145) L 11/11/21 00:40 Potassium 4.4 mmol/L (3.5-5.1) 11/11/21 00:40 Chloride 101 mmol/L (98-107) 11/11/21 00:40 Carbon Dioxide 25 mmol/L (22-29) 11/11/21 00:40 Anion Gap 13.4 (5-19) 11/11/21 00:40 BUN 20 mg/dL (6-20) 11/11/21 00:40 Creatinine 0.6 mg/dL (0.7-1.2) L 11/11/21 00:40 GFR Calculation 143.8 mL/min (90-130) H 11/11/21 00:40 Glucose 219 mg/dL (65-115) H 11/11/21 00:40 POC Glucose 183 mg/dL (70-110) H 11/11/21 07:04 Calculated Osmolality 289 mOsm/kg (285-295) 11/11/21 00:40 Lactate 0.9 mmol/L (0.5-2.2) 11/11/21 00:40 Calcium 8.5 mg/dL (8.5-10.5) 11/11/21 00:40 Total Bilirubin 0.2 mg/dL (0.15-1.2) 11/11/21 00:40 AST 16 U/L (0-40) 11/11/21 00:40 ALT 16 U/L (0-41) 11/11/21 00:40 Alkaline Phosphatase 83 IU/L (40-130) 11/11/21 00:40 Total Protein 5.5 g/dL (6.6-8.7) L 11/11/21 00:40 Albumin 3.5 g/dL (3.5-5.2) 11/11/21 00:40 Globulin 2.0 g/dL (1.3-4.6) 11/11/21 00:40 Complement C4 16 mg/dL (10-40) 11/10/21 19:31 Vitals Last Vital Signs Temp 98.1 F 11/11/21 07:00 Pulse 74 11/11/21 05:18 Resp 10 L 11/11/21 04:20 BP 102/55 11/11/21 04:20 Pulse Ox 97 11/11/21 04:20 Discharge Plan Discharge Patient Disposition: Home Condition: Stable Prescriptions: New diphenhydramine HCl [Benadryl Allergy] 25 mg tablet 25 mg PO Q8H PRN (Reason: allergic reaction) Qty: 30 0RF amlodipine 10 mg tablet 10 mg PO DAILY Qty: 30 0RF epinephrine [EpiPen 2-Yordan] 0.3 mg/0.3 mL auto-injector 0.3 mg IM Q10M PRN (Reason: hypersensitivity reaction) Qty: 2 2RF Rx Instructions: for 2 doses methylprednisolone [Medrol (Yordan)] 4 mg tablets,dose pack 4 mg PO DAILY Qty: 21 0RF levofloxacin 750 mg tablet 750 mg PO DAILY 7 Days Qty: 7 0RF mupirocin 2 % ointment 1 applic topical 5XD Qty: 22 1RF Continued ondansetron HCl [Zofran] 4 mg tablet 4 mg PO Q8H PRN (Reason: nausea and vomiting) Qty: 15 0RF (DME) FreeStyle Sylvester 2 [place] Misc See Rx Instructions .ROUTE .COMPLEX Qty: 1 0RF Dose Instruction: USE DIRECTED Rx Instructions: USE DIRECTED (DME) FreeStyle [place] 2 Sensor Kit See Rx Instructions .ROUTE .COMPLEX Qty: 2 1RF Dose Instruction: USE TO CHECK BLOOD SUGAR Rx Instructions: USE TO CHECK BLOOD SUGAR baclofen 10 mg tablet See Rx Instructions .ROUTE .COMPLEX Qty: 60 0RF Dose Instruction: TAKE 1 TABLET BY MOUTH TWICE DAILY NEEDED FOR MUSCLE PAIN Rx Instructions: TAKE 1 TABLET BY MOUTH TWICE DAILY NEEDED FOR MUSCLE PAIN tramadol 50 mg tablet 50 mg PO Q6H PRN (Reason: pain) Qty: 14 0RF meloxicam 15 mg tablet 15 mg PO DAILY 0RF pantoprazole [Protonix] 40 mg tablet,delayed release (DR/EC) 40 mg PO DAILY PRN (Reason: Acid Reflux) 0RF Farxiga 10 mg tablet 10 mg PO DAILY 0RF hydroxyzine HCl 25 mg tablet 25 mg PO TID Qty: 20 0RF ondansetron HCl 4 mg tablet 4 mg PO Q6H PRN (Reason: nausea and vomiting) Qty: 20 0RF Discontinued clindamycin HCl 150 mg capsule 450 mg PO Q8H 7 Days Qty: 63 0RF lisinopril 10 mg tablet 10 mg PO DAILY 0RF Discharge Orders: Discharge Order (Routine); Ordered 11/11/21 Ordered By: Justa Costa Referrals: Emely Wei FNP [Primary Care Provider] - 1-3 days (appointment scheduled ,Sunday at time of 09:00 am ) Kendra Barnett DO [Physician] - 1-3 days [facility], [Staff Physician] - 4-7 days (appointment confirmed at [facility] , for Sunday11-14-2021 at time of 08:30 am) Discharge Diet: Diabetic Discharge Activity: Resume usual activity Patient Instructions: Diphenhydramine (By mouth), Methylprednisolone (By mouth) (Medrol, Medrol Dosepak), Amlodipine (By mouth), Epinephrine (By injection) (Adrenaclick, Adrenalin, EpiPen,..., Anaphylaxis (DC), Basic Carbohydrate Counting (DC), Adverse Drug Reaction (ED), Opioid Safety Activity Restrictions/Additional Instructions: Please do not take lisinopril, Bactrim, or clindamycin I will add amlodipine as a substitute for your lisinopril for hypertension You can take a topical bacitracin for your ulcers on left arm Please also see wound care clinic He has been prescribed Medrol pack because of allergic reaction, Benadryl and EpiPen In case you experience any shortness of breath, lip swelling, please do not hesitate to come back to the ER to get IV medications Discharge Attestations Time Spent in Discharge Care*: less than 30 min Quality Metrics Clinical Quality Measures [ No reported AMI, CVA or VTE this stay] Coding Level of Care Code Acute Chg FW DC note Diagnoses Allergic reaction T78.40XA Angioedema T78.3XXA Urticaria L50.9 Abscess of multiple sites of upper arm L02.419 Leukocytosis D72.829
--- NOTE | 2021-11-11 09:39 | PC.NURSE ---
Nurse is continuing to monitor patient for allergic reaction. Rash is still present and has worsened some, itching still present. Patient reports that tingling in throat is no longer present. Patient does not appear to be in any distress.
[2021-11-11] MEDS: TRAMadol 50 mg Tablet PO (10:59)
[2021-11-11 11:25] LABS: Glucose Point of Care 218 mg/dL (70-110)
[2021-11-11] MEDS: levoFLOXacin 750 mg Tablet PO (11:59)
--- NOTE | 2021-11-11 12:39 | PC.CHAP ---
Pastoral Care Encounter/Spiritual Assessment Type of Contact [] Declined patient case manager visit [] Patient/Family/Request visit [] Outpatient visit [] Follow-up visit [] Physician referral [] Code/Alert [x] Routine visit [] Staff referral [] Actively dying [] Patient sleeping [] Family support [] [] Out of room [] Palliative care [] [] Receiving care in room [] Pre-surgical visit [] Trauma [] Long length of stay [x] ICU visit [x] Other: isolated Relational/Emotional Strength [] Patient feels connected with others/family/visitors/staff [] Distress [] Loneliness/isolation [] Abandonment Spirituality of Patient [] Person of Karla [] Attends Muslim of their Karla [] Believes in Prayer [] Reads Bible or Sabianism materials [] There are Spiritual issues to be addressed Qa Auditor Interventions [x] Prayer [] Active listening [] Non-anxious presence [] Spiritual/emotional support [] Crisis/trauma care [] Spiritual counseling [] Bereavement support [] Provided bereavement packet [] Provided Bible/devotional materials [] Provided toy/stuffed animal, coloring book to patient or family member [] Provided Communion [] Anointing/[place] [] Salvation [x] Completed spiritual assessment [] Other: Impact on Illness or Injury [] Angry [] Fearful [] Anxious [] Often cries [] Exhaustion [] Unable to work [] Unable to attend druze [] Unable to walk/stand [] Unable to read [] Unable to drive [] Unable to eat/drink [] Unable to sleep [] Unable to be with family [] Patient intubated [] Other: Summary Time spent with patient
--- NOTE | 2021-11-11 13:50 | PC.NURSE ---
Wounds to left arm redpacked and redressed. Packing removed from anterior upper arms wound. Tunnel measured as 39 mm Deep and goes towards posterior arm wound. Packing from posterior upper left arm removed and replaced. Tunnel measured as 23 mm Deep and tunnels towars anterior arm wound. Tunnels appear to connect.
--- NOTE | 2021-11-11 14:49 | PC.NURSE ---
Patient has been dishcarged. IV removed and intact. Upcoming appointments and medication instructions provided. Patient ambulated out. 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 Patient signature form signed
== END 2021-11-11 14:50 | disposition home or self-care (01) ==
LOC: ER 22:25 → ICU 22:52
PROVIDERS: Admitting Provider Internal Medicine; Emergency Provider Emergency Medicine; PCP Nurse Practitioner Family; Visit Provider Internal Medicine
DX: T78.40XA Allergy, unspecified, initial encounter (principal); T78.3XXA Angioneurotic edema, initial encounter; L50.9 Urticaria, unspecified; D72.829 Elevated white blood cell count, unspecified; B95.62 Methicillin resistant Staphylococcus aureus infection as the cause of diseases classified elsewhere; I10 Essential (primary) hypertension; L02.419 Cutaneous abscess of limb, unspecified; E11.9 Type 2 diabetes mellitus without complications; E78.5 Hyperlipidemia, unspecified; K21.9 Gastro-esophageal reflux disease without esophagitis; F17.210 Nicotine dependence, cigarettes, uncomplicated
CPT/HCPCS: 36415; 36416; 76882; 80048; 80053; 82962; 83605; 85025; 86160; 87040; 96365; 96372; 96375; 99285; G0378; J0171; J1200; J1644; J1815; J2920; J2930; J3370; J3490; J7030; J7050

== ENCOUNTER → 2021-11-25 10:29 | Outpatient (BNVA) | payer OTHER, SELFPAY | PROVIDERS: PCP Nurse Practitioner Family; Visit Provider Nurse Practitioner Family | DX: R60.0 Localized edema (principal); L03.90 Cellulitis, unspecified | CPT/HCPCS: 80053; 85025 ==

== ENCOUNTER → 2022-02-01 15:57 | Outpatient (BNVA) | payer OTHER, SELFPAY | PROVIDERS: PCP Nurse Practitioner Family; Visit Provider Nurse Practitioner Family | DX: I10 Essential (primary) hypertension (principal); E11.9 Type 2 diabetes mellitus without complications | CPT/HCPCS: 80053; 83036 ==

== ENCOUNTER → 2022-04-07 11:52 | Outpatient (BNVA) | payer OTHER, SELFPAY | PROVIDERS: PCP Nurse Practitioner Family; Visit Provider Nurse Practitioner Family | DX: R10.9 Unspecified abdominal pain (principal); R11.2 Nausea with vomiting, unspecified | CPT/HCPCS: 82150; 83690 ==

== ENCOUNTER → 2022-05-03 09:11 | Outpatient (BNVA) | payer OTHER, SELFPAY | PROVIDERS: PCP Nurse Practitioner Family; Visit Provider Nurse Practitioner Family | DX: E11.9 Type 2 diabetes mellitus without complications (principal); E78.5 Hyperlipidemia, unspecified; I10 Essential (primary) hypertension; M62.838 Other muscle spasm | CPT/HCPCS: 80053; 80061; 82043; 83036 ==

== ENCOUNTER 2022-05-15 23:31 | Emergency (ER) | payer OTHER, SELFPAY ==
[2022-05-15 23:37] VITALS: BP 142/77; PULSE 84; RESP 16; TEMP 36.8; O2SAT 100; BMI 25.0
[2022-05-15 23:51] VITALS: BP 124/75; PULSE 85; RESP 16; O2SAT 100
[2022-05-16] MEDS: ketorolac 60 mg/2 mL INJ IM (00:34)
[2022-05-16] MEDS: orphenadrine 30 mg/mL Inj 2 mL 60 MG IM (00:34)
--- NOTE | 2022-05-16 01:07 | ED_ITS ---
HPI - Back Pain/Injury General: Chief Complaint: Back Pain/Injury Stated Complaint: back pain Time Seen by Provider: 05/15/22 23:49 Source: patient Mode of arrival: ambulatory Limitations: no limitations History of Present Illness: Patient presents emergency department today for evaluation treatment of complaints of low back pain and left leg pain. Patient states he noticed Sunday morning when he woke up discomfort and attempted topical pain rubs and application of heat through Sunday night. Patient denies any known injury prior to onset of his discomfort. He denies any motor vehicle accidents or falls during that time. Patient states he went to the chiropractor today and got adjusted but did not get relief like he typically does. He has not had any bowel or bladder dysfunction. Patient states he is still ambulatory but does notice an increase in his discomfort with weightbearing. Review of Systems General: Reports: 10 or more systems reviewed and unremarkable except in HPI and below Musc: Reports: back pain and extremity pain PFSH ED PFSH: Medical History Abdominal pain Abscess of multiple sites of upper arm Allergic reaction Angioedema Colitis Hypertension Left-sided chest wall pain Leukocytosis Mild acid reflux Type 2 diabetes mellitus without complication Urticaria Family History Mother Hypertension Diabetes Father Diabetes Social History Smoking and tobacco status: current every day smoker Alcohol intake: never Marital status: Current occupational status: employed History of recent travel: No Physical Exam Const: COMMON NORMALS: no acute distress, patient oriented x3 and alert HENMT: COMMON NORMALS: normocephalic, atraumatic and hearing grossly normal bilaterally HEAD & SCALP: normocephalic and atraumatic Eye: COMMON NORMALS: Equal, round and reactive pupils present, EOMs intact bilaterally and conjunctivae normal CONJUNCTIVA: Yes conjunctivae normal PUPIL: Yes Equal, round and reactive pupils present Neck/C-Spine: COMMON NORMALS: full ROM and no JVD Lymph: LYMPHATIC: no lymphadenopathy noted Resp: COMMON NORMALS: normal respiratory effort, No retractions and No use of accessory muscles Cardio: COMMON NORMALS: no JVD and regular rate RATE: regular rate Extremity: NARRATIVE EXTREMITY EXAM: Patient is independently ambulatory and weightbearing here in the emergency department. Patient is able to flex and extend the hip and at the knee though he does indicate discomfort with hip flexion felt in his buttock and upper left leg. No signs of lower extremity swelling or edema. Patient is nontender on palpation to the left knee. No tenderness of the left ankle. Neuro: COMMON NORMALS: patient oriented x3 SENSORIUM/ORIENTATION: Yes alert Psych: COMMON NORMALS: mental status grossly normal, Normal thought process present, cooperative and normal affect THOUGHT PROCESS: Normal thought process present Skin: COMMON NORMALS: no rashes or lesions noted and turgor normal GENERAL SKIN EXAM: no rashes or lesions noted and turgor normal Course Vital Signs: Vital signs: Vital Signs Temperature 98.3 F 05/15/22 23:37 Pulse Rate 85 05/15/22 23:51 Respiratory Rate 16 05/15/22 23:51 Blood Pressure 124/75 05/15/22 23:51 Pulse Oximetry 100 05/15/22 23:51 Oxygen Delivery Me thod 05/15/22 23:51 MDM - Back Pain/Injury Medical Decision Making Given that the patient has no known injury and the description of the low back pain affecting his left buttock and hip region with worsening pain with flexion of the hip is consistent with a sciatica. Patient indicates no signs of neurological dysfunction with bowel or bladder issues and though uncomfortable is still able to be weightbearing independently ambulatory. Patient is treated today with Norflex and Toradol. Upon rechecking the patient, he indicates he is noticing an improvement and patient then demonstrates his ability to get off the bed, bend over and touch the floor, perform a full squat, and walk down and back in the room. Explained that we will continue treatment for the next few days and after that time, he may wish to go back to the chiropractor again for continued adjustments. Patient to follow-up with his primary care doctor as needed as well. Return precautions given. Differential Diagnosis Likely lumbar radiculopathy, sciatica and strain of lumbar region; Unlikely pyelonephritis or thoracic back pain Discharge Plan Discharge Patient Disposition: Home Clinical Impression: Back pain of lumbar region with sciatica Condition: Stable Prescriptions: New tizanidine 4 mg capsule 4 mg PO Q8H PRN (Reason: muscle spasticity) Qty: 20 0RF Salonpas (lidocaine) 4 % adhesive patch,medicated 1 patch topical BID PRN (Reason: pain) Qty: 15 0RF No Action ondansetron HCl [Zofran] 4 mg tablet 4 mg PO Q8H PRN (Reason: nausea and vomiting) Qty: 15 0RF mupirocin 2 % ointment 1 applic topical BID 10 Days Qty: 22 2RF Rx Instructions: Apply a thin film to both nostrils twice daily for 10 days repeat every 2 months. (DME) Diabetic Steel Toe Shoes with Custom Molded Accommodative Orthotics See Rx Instructions .Route .MEDSUPPLY Qty: 1 0RF Rx Instructions: As directed by Juanita Sanchez & O baclofen 10 mg tablet See Rx Instructions .ROUTE .COMPLEX Qty: 60 0RF Dose Instruction: TAKE 1 TABLET BY MOUTH TWICE DAILY NEEDED FOR MUSCLE PAIN Rx Instructions: TAKE 1 TABLET BY MOUTH TWICE DAILY NEEDED FOR MUSCLE PAIN (DME) FreeStyle Sylvester 2 [place] Misc See Rx Instructions .ROUTE .COMPLEX Qty: 1 0RF Dose Instruction: USE DIRECTED Rx Instructions: USE DIRECTED ([facility] [place]) FreeStyle Sylvester 2 Sensor Kit See Rx Instructions .ROUTE .COMPLEX Qty: 2 4RF Dose Instruction: USE TO CHECK BLOOD SUGAR Rx Instructions: USE TO CHECK BLOOD SUGAR amlodipine 5 mg tablet See Rx Instructions .ROUTE .COMPLEX Qty: 90 0RF Dose Instruction: TAKE 1 TABLET BY MOUTH DAILY Rx Instructions: TAKE 1 TABLET BY MOUTH DAILY meloxicam 15 mg tablet 15 mg PO DAILY Qty: 90 0RF Farxiga 10 mg tablet 10 mg PO DAILY Qty: 90 0RF tramadol 50 mg tablet 50 mg PO Q6H PRN (Reason: pain) Qty: 14 0RF pantoprazole [Protonix] 40 mg tablet,delayed release (DR/EC) 40 mg PO DAILY PRN (Reason: Acid Reflux) hydroxyzine HCl 25 mg tablet 25 mg PO TID Qty: 20 0RF ondansetron HCl 4 mg tablet 4 mg PO Q6H PRN (Reason: nausea and vomiting) Qty: 20 0RF EpiPen 2-Yordan 0.3 mg/0.3 mL auto-injector 0.3 mg IM Q10M PRN (Reason: hypersensitivity reaction) Qty: 2 2RF Rx Instructions: for 2 doses Benadryl Allergy 25 mg tablet 25 mg PO Q8H PRN (Reason: allergic reaction) Qty: 30 0RF mupirocin 2 % ointment 1 applic topical 5XD Qty: 22 1RF Humalog KwikPen Insulin 100 unit/mL insulin pen See Rx Instructions .ROUTE .COMPLEX Qty: 15 0RF Rx Instructions: sliding sclae Discharge Orders: Discharge ED (Routine); Ordered 05/16/22 Ordered By: Beth Hernandez Referrals: Emely Wei FNP [Primary Care Provider] - Discharge Diet: Usual diet Discharge Activity: Increase activity as tolerated Activity Restrictions/Additional Instructions: Based on the description and location of your pain, we did attempt treatment today for both sciatica and muscular low back and gluteal discomfort. I want you to hold your baclofen and start taking tizanidine as prescribed. When your tizanidine runs out you can switch back to the baclofen. However, for this acute treatment I would like to see how you respond to the tizanidine first. Continue taking your meloxicam. I have prescribed you a topical pain patch for you to apply to your low back or leg as needed for areas of pain and discomfort. After few days of treatment you may wish to follow-up with your chiropractor to attempt being adjusted again as your body may respond better once it is more relaxed and out of spasm. Otherwise, follow-up with your primary care as needed. Coding Level of Care Code ED Film Touch Up Inspector for Doreen Fwlars Exam Comprehensive
== END 2022-05-16 01:37 | disposition home or self-care (01) ==
PROVIDERS: Emergency Provider Physician Assistant; PCP Nurse Practitioner Family
DX: M54.40 Lumbago with sciatica, unspecified side (principal); Z79.4 Long term (current) use of insulin; I10 Essential (primary) hypertension; E11.9 Type 2 diabetes mellitus without complications; F17.210 Nicotine dependence, cigarettes, uncomplicated
CPT/HCPCS: 96372; 99284; J1885; J2360

== ENCOUNTER → 2022-08-10 10:11 | Outpatient (BNVA) | payer OTHER, SELFPAY | PROVIDERS: PCP Nurse Practitioner Family; Visit Provider Nurse Practitioner Family | DX: E11.9 Type 2 diabetes mellitus without complications (principal); I10 Essential (primary) hypertension | CPT/HCPCS: 80053; 83036 ==

== ENCOUNTER → 2022-12-08 10:34 | Outpatient (BNVA) | payer OTHER, SELFPAY | PROVIDERS: PCP Nurse Practitioner Family; Visit Provider Nurse Practitioner Family | DX: I10 Essential (primary) hypertension (principal); E78.5 Hyperlipidemia, unspecified; E11.9 Type 2 diabetes mellitus without complications | CPT/HCPCS: 80053; 80061; 83036 ==

== ENCOUNTER → 2023-04-13 08:31 | Outpatient (BNVA) | payer OTHER, SELFPAY | PROVIDERS: PCP Nurse Practitioner Family; Visit Provider Nurse Practitioner Family | DX: E11.9 Type 2 diabetes mellitus without complications (principal); E78.5 Hyperlipidemia, unspecified; I10 Essential (primary) hypertension | CPT/HCPCS: 80053; 80061; 83036 ==

== ENCOUNTER → 2023-07-20 09:16 | Outpatient (BNVA) | payer OTHER, SELFPAY | PROVIDERS: PCP Nurse Practitioner Family; Visit Provider Nurse Practitioner Family | DX: I10 Essential (primary) hypertension (principal); E11.9 Type 2 diabetes mellitus without complications; E78.5 Hyperlipidemia, unspecified | CPT/HCPCS: 80053; 80061; 83036 ==

== ENCOUNTER 2023-08-31 12:51 | Outpatient (CLI) | payer OTHER, SELFPAY ==
--- NOTE | 2023-08-31 12:56 | XR_ITS ---
WS: [id number] Lumbar spine, 3 views, 08/31/2023 Clinical Data: M54.50 - Low back pain, unspecified Comparison: None. Findings: No compression fractures or subluxation is seen. There is degenerative disc narrowing at T12-L1 with anterior osteophytes. The L2, L3 and L4 vertebral bodies show anterior osteophytes. There is a slight levoscoliosis. The transverse processes and SI joints are normal. XR/XR lumbar spine 2-3V* [id number] Impression: 1. Degenerative disc narrowing at T12-L1 with anterior osteophytes. 2. Slight levoscoliosis. 3. Osteoarthritis at L2, L3 and L4.
== END 2023-08-31 12:52 | disposition home or self-care (01) ==
LOC: RAD 12:52
PROVIDERS: PCP Nurse Practitioner Family; Visit Provider Nurse Practitioner Family
DX: M48.05 Spinal stenosis, thoracolumbar region (principal); M25.78 Osteophyte, vertebrae; M47.896 Other spondylosis, lumbar region
CPT/HCPCS: 72100

== ENCOUNTER 2023-10-18 07:03 | Outpatient (CLI) | payer OTHER, SELFPAY ==
--- NOTE | 2023-10-18 07:15 | MR_ITS ---
WS: [id number] MRI LUMBAR SPINE NONCONTRAST HISTORY: M54.50 - Low back pain, unspecified COMPARISON: None available. TECHNIQUE: Sagittal and axial multisequence imaging is submitted. Mild increase in the cervical lordosis. Moderate size central disc protrusion at C3-4 does contact th e cervical cord. Increase in thoracic kyphosis. 3 mm anterolisthesis of L4. Otherwise the vertebral bodies are normally aligned. Disc spaces are mildly narrowed and desiccated. Conus terminates normally at L1-2 disc level. L1-L2: Mild annular disc bulging. Asymmetric disc bulging to the LEFT foramen. No central stenosis. M ild LEFT foraminal stenosis. L2-L3: Diffuse annular disc bulging with ligamentum flavum and facet arthritis. Disc encroaches upon the subarticular recesses contacting the traversing L3 nerve roots. Mild central, bilateral subarticu lar recess and foraminal stenosis. L3-L4: Diffuse annular disc bulging with ligamentum flavum and facet arthritis. Disc contacts the tra versing L4 nerve roots. Mild central and bilateral subarticular recess stenosis with moderate foramin al stenosis. L4-L5: Marked annular disc bulging with a more focal RIGHT paracentral disc protrusion. Marked facet disease and ligamentum flavum disease. Fluid in the facet joints. Thecal sac is being deformed and di splaced by the central stenosis. Significant effacement of fat in the foramina, LEFT greater than RIG HT. Severe central, bilateral subarticular recess and foraminal stenosis. There is encroachment upon the exiting and traversing nerve roots. L5-S1: Diffuse annular disc bulging with moderate facet disease. Tiny central disc protrusion. Mild b ilateral foraminal stenosis. MR/MR lumbar spine wo con* [id number] IMPRESSION: 1. Grade 1 anterolisthesis of L4. 2. L4-5: Multifactorial degenerative changes resulting in severe central, bila teral subarticular recess and foraminal stenosis. There is significant contact on the traversing and exiting nerve roots. 3. L1-2: Mild LEFT foraminal stenosis. 4. L2-3: Mild central, bilateral subarticular recess and foraminal stenosis wi th mild contact on the traversing L3 nerve roots. 5. L3-4: Mild central with bilateral subarticular recess stenosis and moderate foraminal stenosis. 6. L5-S1: Mild bilateral foraminal stenosis.
== END 2023-10-18 07:04 | disposition home or self-care (01) ==
PROVIDERS: PCP Nurse Practitioner Family; Visit Provider Nurse Practitioner Family
DX: M43.16 Spondylolisthesis, lumbar region (principal); M99.63 Osseous and subluxation stenosis of intervertebral foramina of lumbar region; M51.37 Other intervertebral disc degeneration, lumbosacral region
CPT/HCPCS: 72148

== ENCOUNTER → 2023-11-02 08:46 | Outpatient (BNVA) | payer OTHER, SELFPAY | PROVIDERS: PCP Nurse Practitioner Family; Visit Provider Nurse Practitioner Family | DX: E78.2 Mixed hyperlipidemia (principal); E11.9 Type 2 diabetes mellitus without complications; I10 Essential (primary) hypertension | CPT/HCPCS: 80053; 80061; 83036 ==

== ENCOUNTER → 2023-11-15 14:34 | Outpatient (BNVA) | payer OTHER, SELFPAY | PROVIDERS: PCP Nurse Practitioner Family; Visit Provider Orthopaedic Surgery | DX: M47.896 Other spondylosis, lumbar region (principal) | CPT/HCPCS: 72100 ==

== ENCOUNTER → 2024-02-15 08:33 | Outpatient (BNVA) | payer OTHER, SELFPAY | PROVIDERS: PCP Nurse Practitioner Family; Visit Provider Nurse Practitioner Family | DX: I10 Essential (primary) hypertension (principal); E11.9 Type 2 diabetes mellitus without complications; E78.2 Mixed hyperlipidemia | CPT/HCPCS: 80053; 80061; 83036 ==

== ENCOUNTER → 2024-05-09 10:22 | Outpatient (BNVA) | payer OTHER, SELFPAY | PROVIDERS: PCP Nurse Practitioner Family; Visit Provider Nurse Practitioner Family | DX: I10 Essential (primary) hypertension (principal); E11.9 Type 2 diabetes mellitus without complications; E78.2 Mixed hyperlipidemia | CPT/HCPCS: 80053; 80061; 83036 ==

== ENCOUNTER → 2024-08-08 08:38 | Outpatient (BNVA) | payer OTHER, SELFPAY | PROVIDERS: PCP Nurse Practitioner Family; Visit Provider Nurse Practitioner Family | DX: I10 Essential (primary) hypertension (principal); E11.9 Type 2 diabetes mellitus without complications; E78.2 Mixed hyperlipidemia | CPT/HCPCS: 80053; 80061; 83036 ==

== ENCOUNTER → 2024-11-07 08:02 | Outpatient (BNVA) | payer OTHER, SELFPAY | PROVIDERS: PCP Nurse Practitioner Family; Visit Provider Nurse Practitioner Family | DX: I10 Essential (primary) hypertension (principal); E11.9 Type 2 diabetes mellitus without complications; E78.2 Mixed hyperlipidemia | CPT/HCPCS: 80053; 80061; 83036 ==

== ENCOUNTER → 2025-02-06 08:06 | Outpatient (BNVA) | payer OTHER, SELFPAY | PROVIDERS: PCP Nurse Practitioner Family; Visit Provider Nurse Practitioner Family | DX: I10 Essential (primary) hypertension (principal); E11.9 Type 2 diabetes mellitus without complications | CPT/HCPCS: 80053; 80061; 83036 ==